=== PATIENT | female | born 1990 | race Caucasian/White ===

== ENCOUNTER 2019-10-12 04:23 | Emergency (ER) | payer SELFPAY ==
[2019-10-12 04:40] VITALS: BP 132/76; PULSE 76; TEMP 98.5; BMI 30.1
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
== END 2019-10-12 05:04 | disposition home or self-care (01) ==
LOC: FER 04:23
DX: M25.561 Pain in right knee (principal)
CPT/HCPCS: 99283-25